=== PATIENT | female | born 1975 | race Caucasian/White ===

== ENCOUNTER 2019-07-08 06:48 | Day surgery (SDC) | payer BC ==
[~2019-07-08 06:48] MED LIST: KEFZOL 1 GM/50 ML PREMIX** 1 GM/50 ML IVPB IV SCH
[2019-07-08] MEDS ORDERED: KEFZOL 1 GM/50 ML PREMIX** 1 GM/50 ML IVPB IV ONE (06:57)
[2019-07-08] MEDS ORDERED: Lactated Ringers 1,000 ML IV ONE ×2 (06:57→07:21)
[2019-07-08] MEDS ORDERED: Lactated Ringers 1,000 ML IV SCH (07:00)
[2019-07-08] MEDS ORDERED: DIPRIVAN 200 MG/20 ML IV ONE (07:40)
[2019-07-08] MEDS ORDERED: SUBLIMAZE 100 MCG/2 ML ONE (07:40)
[2019-07-08] MEDS ORDERED: Versed 2 MG/2 ML Injection ONE (07:40)
[2019-07-08] MEDS ORDERED: Decadron 4 MG INJ ONE (07:42)
[2019-07-08] MEDS ORDERED: Zofran 4 MG/2 ML VIAL ONE (07:42)
[2019-07-08 10:20] VITALS: O2SAT 97
[2019-07-08 10:34] VITALS: BP 145/85; PULSE 65
--- NOTE | 2019-07-09 08:02 | OP ---
SURGERY DATE/TIME: 07/08/2019 0836 PREOPERATIVE DIAGNOSIS: Menorrhagia. POSTOPERATIVE DIAGNOSIS: Menorrhagia with submucosal fibroid 1 x 1 cm in dimension. PROCEDURES: Hysteroscopy, dilation and curettage with resection of submucosal fibroid and endometrial ablation. SURGEON: Sohail Garsia D.O. 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 ANESTHESIA: General. ESTIMATED BLOOD LOSS: Minimal. COMPLICATIONS: None. INDICATIONS: The risks, benefits, indications and alternatives of the procedure were reviewed with the patient prior to the procedure. The patient understood the risk of infection, bleeding, bowel injury, bladder injury, ureteral injury and uterine perforation associated with the surgery and desires to have this surgery as a possible need to alleviate her current medical condition. DESCRIPTION OF PROCEDURE AND FINDINGS: At this point the patient is taken to the operating room, given general sedation, placed in dorsal lithotomy position. Prepped and draped in the usual sterile fashion. A weighted speculum is then placed in the patient's vagina and the anterior lip of the cervix is grasped with a single tooth tenaculum. Endocervical dilators were advanced to the endocervical canal as a means to dilate the cervix and the uterus was sounded to approximately 6 cm. From this point a 5 mm hysteroscope was then placed into the fundus of the uterus where visualization appeared to be within normal limits. However there appeared to be approximately 1 x 1 cm posterior submucosal fibroid. Where at this point after visualization a MyoSure was then introduced into the channel of the hysteroscope and the MyoSure was used to resect the fibroid appearing lesion and was done so without complication. There was minimal bleeding that was noted. The remainder of the uterine cavity appeared to be within normal limits. From this point the hysteroscope was then removed and curette was then placed into the fundus of the uterus where curettage was performed in all quadrants of the uterus retrieving a mild to moderate amount of tissue. At the completion of the curettage, the curette was then removed. At this point the Novasure was used and the Novasure was then adjusted to a length of 5 cm and then the instrument was then placed into the fundus of the uterus retracted approximately 1 cm and was then engaged and the width was noted to be 4.6 cm. After engagement of the Novasure instrument the machine was turned on for a time of 1 minute and 3 seconds. At the completion of the ablation at 1 minute and 3 seconds, the Novasure was then disengaged and was then removed from the uterine cavity without complication. From this point there was minimal bleeding that was noted from the cervix. At this point all instruments were then removed from the patient's vaginal region. The patient was then taken out of the dorsal lithotomy position and was taken out of anesthesia and was then taken to the recovery room in stable room. All instruments and laps were accounted for x2. The fluid deficit during the procedure was 480 cc.
== END 2019-07-08 10:40 | disposition home or self-care (01) ==
LOC: SDC 06:48
PROVIDERS: ATTEND Obstetrics & Gynecology
DX: D25.0 Submucous leiomyoma of uterus (principal); N92.0 Excessive and frequent menstruation with regular cycle
CPT/HCPCS: 84703; 88305; J0690; J1100; J2250; J2405; J2704; J3010